=== PATIENT | female | born 1975 | race Caucasian/White ===

== ENCOUNTER 2023-06-10 13:43 | Outpatient (OUT) | payer OTHER, SELFPAY ==
--- NOTE | 2023-06-10 13:47 | MM_ITS ---
Patient: HUNTER MARTINEZ Exam Date: 06/10/2023 : 1975 Gender:F Ordering : DR Ying Romero M.D. Admission #: [id number] Family : Order #: [id number] CLICK HERE TO VIEW EXAM RADIOLOGY REPORT PROCEDURE: MM TOMOSYNTHESIS SCREENING BI COMPARISON: MG MAMM SCREEN 3D KSENIA CAD, 06/09/2021. INDICATIONS: Screening mammogram Z12.31 Calculator Name NCI Breast Cancer Risk Assessment Tool 5 Year Breast Cancer Risk 1.00% Lifetime Breast Cancer Risk 11.90% Personal Breast Cancer No Personal Ovarian Cancer No Treatments None Family Cancers None LOCATION: [facility] BREAST COMPOSITION: Heterogeneously dense,which may obscure small masses. FINDINGS: DIAGNOSTIC CATEGORY 1--NEGATIVE. RIGHT BREAST: No significant suspicious finding. No significant change has occurred. LEFT BREAST: No significant suspicious finding. No significant change has occurred. RECOMMENDATIONS: ROUTINE MAMMOGRAM AND CLINICAL EVALUATION IN 12 MONTHS. PLEASE NOTE: A NORMAL MAMMOGRAM DOES NOT EXCLUDE THE POSSIBILITY OF BREAST CANCER. A CLINICALLY SUSPICIOUS PALPABLE LUMP SHOULD BE BIOPSIED. Dictated by: Jb Ricardo M.D. on 06/11/2023 at 12:38 Approved by: Jb Ricardo M.D. on 06/11/2023 at 12:43
== END 2023-06-10 13:44 | disposition home or self-care (01) ==
LOC: MAMMO 13:43
PROVIDERS: PCP Family Medicine; Visit Provider Family Medicine
DX: Z12.31 Encounter for screening mammogram for malignant neoplasm of breast (principal)
CPT/HCPCS: 77063; 77067

== ENCOUNTER 2023-07-31 09:05 | Outpatient (OUT) | payer OTHER, SELFPAY ==
[2023-07-31 09:43] LABS: Estimated Average Glucose 100 mg/dL; Glycohemoglobin A1C 5.1 % (4.5-6.2)
[2023-07-31 10:47] LABS: Anion Gap 13.9; Carbon Dioxide 26.5 mmol/L (21.0-32.0); Chloride 103 mmol/L (98-107); Glucose 93 mg/dL (74-106); Potassium 4.4 mmol/L (3.5-5.1); Sodium 139 mmol/L (136-145)
[2023-07-31 10:48] LABS: Alanine Aminotransferase 22 U/L (14-59); Albumin Globulin Ratio 1.2; Albumin Level 4.2 g/dL (3.4-5.0); Alkaline Phosphatase 45 U/L (46-116); Aspartate Amino Transferase 11 U/L (15-37); BUN Creatinine Ratio 23.8; Bilirubin Total 0.5 mg/dL (0.2-1.0); Calcium 9.1 mg/dL (8.5-10.1); Cholesterol 189 mg/dL (<=200); Estimated GFR (African America >60 (>=60); Estimated GFR (Non-African Ame >60 (>=60); Globulin 3.4 g/dL; HDL Cholesterol 68 mg/dL (40-60); Total Protein 7.6 g/dL (6.4-8.2); Triglycerides 32 mg/dL (<=150); VLDL CHOLESTEROL 6.4 mg/dL
[2023-07-31 10:49] LABS: Thyroid Stimulating Hormone 0.857 uIU/mL (0.358-3.740)
[2023-07-31 10:50] LABS: Chol HDL Ratio 2.8
[2023-08-01 04:07] LABS: Thyroid Peroxidase (TPO) Ab <9 IU/mL (0-34)
== END 2023-07-31 09:06 | disposition home or self-care (01) ==
LOC: LAB 09:06
PROVIDERS: PCP Family Medicine; Visit Provider General Practice
DX: E66.9 Obesity, unspecified (principal); R53.83 Other fatigue; E03.9 Hypothyroidism, unspecified
CPT/HCPCS: 36415; 80053; 80061; 83036; 84443; 86376

== ENCOUNTER 2024-06-11 20:36 | Outpatient (REF) | payer OTHER, SELFPAY ==
[2024-06-18 15:10] LABS: Age Gdln ACOG Testing Note (.); HPV Aptima Negative (Negative); IGP, Aptima HPV, rfx 16/18,45 Note (.)
== END 2024-06-11 20:37 | disposition home or self-care (01) ==
LOC: LAB 20:36
PROVIDERS: PCP Family Medicine; Visit Provider Physician Assistant
DX: Z01.419 Encounter for gynecological examination (general) (routine) without abnormal findings (principal)
CPT/HCPCS: 87624; 88175

== ENCOUNTER 2025-06-16 19:48 | Outpatient (REF) | payer OTHER, SELFPAY ==
--- OUTSIDE RECORDS SUMMARY | 2025-06-16 19:52 | XMS_ITS | CCD ---
Author Organization [facility] Care Team Providers Care Sheet Fed Printer Name Role Phone CODY, DR DEVIN Matthew Consulting Unavailable PORTIA, DR YING Sherman Primary Care Unavailable SHAIKH REBOLLAR Attending Unavailable SMOOTH, Admitting Unavailable SHAIKH REBOLLAR Consulting Unavailable PORTIA, DR YING Sherman Admitting Unavailable PEARCE, DR YING Sherman Attending Unavailable PEARCE, DR YING Sherman Primary Care Unavailable MIGUEL, DR BEARDEN Consulting Unavailable CODY, DR DEVIN Matthew Consulting Unavailable PORTIA, DR YING Sherman Consulting Unavailable PORTIA, DR YING Sherman Admitting Unavailable PEARCE, DR YING Sherman Attending Unavailable PEARCE, DR YING Sherman Consulting Unavailable PORTIA, DR YING Sherman Primary Care Unavailable SHAKIRA STOKES Attending Unavailable Ying Pearce MD Primary Care Provider Ying Pearce MD Primary Care Provider [phone] Problems Problem Classification Problem Date Documented Da te Episodic/Chronic Other bone disease and musculoskeletal deformities (4 sources) Other specified disorders of bone, shoulder; Translations: [OTHER SPEC DISORDERS BONE SHOULDER] Onset: 09-06-2021 Episodic Other non-traumatic joint disorders (1 source) Pain in right shoulder; Translations: [PAIN IN RIGHT SHOULDER] Onset: 09-26-2021 Episodic Other screening for suspected conditions (not mental disorders or infectious disease) (6 sources) Encounter for screening mammogram for malignant neoplasm of breast; Translations: [Patient encounter status] Onset: 06-09-2021 Episodic Results Test Name Value Interpretation Reference Range Facil ity IGP,APTIMA HPV,AGE GDLNon AGE GDLN ACOG TESTING Note . [facility] Comment on above: TESTS RESULT FLAG UN ITS REF RANGE LAB Clinician Provided Cytology Information Source.............Cervix;Endocervix No. of containers..01 ThinPrep Vial Age Jerri OCHOA Pricilla... 32 FLAG LEGEND: L-Low Normal,H-High Normal,LL-Alert Low,HH-Alert High <-Panic Low,>-Panic High,A-Abnormal,AA-Critical Abnormal Performed at: 01 =G [address] [address] Esthela Dee MD, HPV APTIMA Negative Negative [facility] Comment on above: This nucleic acid am plification test detects fourteen high- risk HPV types (16,18,31,33,35,39,45,51,52,56,58,59,66,68) without differentiation. Performed at: =[address] [id number] Staff Assistant: Esthela Dee MD, Phone: [phone] Performed at: - [address] [id number] Staff Assistant: Esthela Dee MD, Phone: [phone] IGP, APTIMA HPV, RFX 16/18,45 Note . [facility] Comment on above: TESTS RESULT FLAG UN ITS REF RANGE LAB DIAGNOSIS: 02 NEGATIVE FOR INTRAEPITHELIAL LESION OR MALIGNANCY. THIS SPECIMEN WAS RESCREENED PART OF OUR COMMUNITY SERVICE COORDINATOR PROGRAM. Specimen adequacy: 02 Satisfactory for evaluation. Endocervical and/or squamous metaplastic cells (endocervical component) are present. Performed by: 02 Yoni Barrett, [employer] ([facility]) QC reviewed by: 02 Kylah Helton, Supervisory [employer] ([facility]) . 02 Note: Note 02 The Pap smear is a screening test designed to aid in the detection of premalignant and malignant conditions of the uterine cervix. It is not a diagnostic procedure and should not be used as the sole means of detecting cervical cancer. Both false-positive and false-negative reports do occur. Test Methodology: Note 02 This liquid based ThinPrep(R) pap test was screened with the use of an image guided system. HPV Genotype Reflex Note 02 Criteria not met, HPV Genotype not performed. FLAG LEGEND: L-Low Normal,H-High Normal,LL-Alert Low,HH-Alert High <-Panic Low,>-Panic High,A-Abnormal,AA-Critical Abnormal Performed at: [address] [address] Esthela Dee MD, BRUSH-SPATULA CERVIX ENDOCERVIX [facility] XR TSPINE 3 VIEWSon 09-06-20 21 XR TSPINE 3 VIEWS EXAMINATION: XR TSPI NE 3 VIEWS HISTORY: Disorder of bone COMPARISON: No relevant comparison available. FINDINGS: BONES: Normal alignment with no acute fracture or spondylolisthesis. Mild diffuse degenerative spondylosis DISC SPACES: Normal. No significant disc height narrowing, subluxation, or endplate abnormality. PARASPINOUS: Negative. No paraspinous abnormality is seen. OTHER: Negative. IMPRESSION: Degenerative spondylosis Electronically authenticated by: DEVIN ROSS Date: 2021-09-06 19:15 Normal [facility] MG MAMM SCREEN 3D KSENIA CADon 06-09-2021 MG MAMM SCREEN 3D KSENIA CAD Patient: HUNTER CURRY Exam Date: 06/09/2021 : 1975 Gender:F Ordering : DR YING PEARCE M.D. Admission #: [id number] Family : DR MONISHA RIVERA . Order #: [id number] CLICK HERE TO VIEW EXAM RADIOLOGY REPORT PROCEDURE: MAMMOGRAM SCREENING 3D BILATERAL CAD COMPARISON: None. INDICATIONS: Screening mammography Calculator Name NCI Breast Cancer Risk Assessment Tool 5 Year Breast Cancer Risk 0.90% Lifetime Breast Cancer Risk 12.10% Personal Breast Cancer No Personal Ovarian Cancer No Treatments None Family Cancers None LOCATION: [facility] BREAST COMPOSITION: Heterogeneously dense,which may obscure small masses. FINDINGS: DIAGNOSTIC CATEGORY 1--NEGATIVE ASSESSMENT. Scattered benign-appearing nodules are present. Scattered benign-appearing calcifications are present. Scattered benign-appearing lymph nodes are present. RIGHT BREAST: No significant suspicious finding. LEFT BREAST: No significant suspicious finding. RECOMMENDATIONS: ROUTINE MAMMOGRAM AND CLINICAL EVALUATION IN 12 MONTHS. PLEASE NOTE: A NORMAL MAMMOGRAM DOES NOT EXCLUDE THE POSSIBILITY OF BREAST CANCER. A CLINICALLY SUSPICIOUS PALPABLE LUMP SHOULD BE BIOPSIED. Dictated by: Devin Ross MD on 06/09/2021 at 10:14 Approved by: Devin Ross MD on 06/09/2021 at 10:19 Normal [facility] LIPID PROFILEon 02-17-2021 CHOL-HDL RATIO NORM SEE BELOW Normal [facility] Comment on above: Result Comment: 3.3 - 4.4 LOW RISK 4.4 - 7.1 AVERAGE RISK 7.1 - 11.0 MODERATE RISK >11.0 HIGH RISK Performed By: #### L IPID #### [facility] [address] [place], [place] [address] Santiago Camryn Cholesterol [Mass/Vol] 182 mg/dL Normal <=200 [facility] Comment on above: Performed By: #### L IPID #### [facility] [address] [place], [place] [address] Santiago Camryn Cholesterol in HDL [Mass/Vol] 67 mg/dL Normal [facility] Comment on above: Performed By: #### L IPID #### [facility] [address] [place] [phone] Santiago Camryn Cholesterol in LDL [Mass/Vol] 108.4 mg/dL Normal [facility] Comment on above: Performed By: #### L IPID #### [facility] [address] [place] [phone] Santiago Camryn Cholesterol.total/ Cholesterol in HDL [Mass ratio] 2.7 {ratio} Normal [facility] Comment on above: Performed By: #### L IPID #### [facility] [address] [place] [address] Santiago Camryn HDL NORMAL > or = 60 mg/dl - LO W CARDIOVASCULAR RISK <40 mg/dl - HIGH CARDIOVASCULAR RISK Normal [facility] Comment on above: Performed By: #### L IPID #### [facility] [address] [place] [phone] Santiago Camryn LDL CALC NORMAL SEE BELOW Normal [facility] Comment on above: Result Comment: <100 mg/dl OPTIMAL 100 - 129 mg/dl NEAR OR ABOVE OPTIMAL 130 - 159 mg/dl BORDERLINE HIGH 160 - 189 mg/dl HIGH >190 mg/dl VERY HIGH Performed By: #### L IPID #### [facility] [address] [place] [phone] Santiago Camryn Triglyceride [Mass/Vol] 33 mg/dL Normal <=150 [facility] Comment on above: Performed By: #### L IPID #### [facility] [address] [place] [address] Santiago Camryn VLDL CALC 6.6 mg/dL Normal [facility] Comment on above: Performed By: #### L IPID #### [facility] [address] [place] [address] Santiago Camryn Vital Signs Date Time Vital Sign Value Performing Clinician Bettina nichols 06-16-2025 16:02-0400 Body mass index (BMI) [Ratio] 32.36 kg/m2 Shakira SRINIVASAN Work Phone: [facility] 06-16-2025 16:02-0400 Body weight 85.5 kg Shakira SRINIVASAN Work Phone: [facility] 06-16-2025 16:02-0400 Diastolic blood pressure 86 mm[Hg] Shakira SRINIVASAN Work Phone: [facility] 06-16-2025 16:02-0400 Systolic blood pressure 140 mm[Hg] Shakira SRINIVASAN Work Phone: [facility] 06-16-2024 15:29-0400 Body height 162.56 cm [facility] 06-16-2024 15:29-0400 Body mass index (BMI) [Ratio] 29 kg/m2 [facility] 06-16-2024 15:29-0400 Body weight 76.65 kg [facility] 06-16-2024 15:29-0400 Diastolic blood pressure 73 mm[Hg] [facility] 06-16-2024 15:29-0400 Heart rate 84 /min [facility] 06-16-2024 15:29-0400 Systolic blood pressure 108 mm[Hg] [facility] Encounters Encounter Date Encounter Type Care Provider Facility Start: 06-16-2025 End: 06-16-2025 Patient encounter procedure Shakira SRINIVASAN Work Phone: [facility] Start: 06-16-2025 End: 06-16-2025 Periodic preventive med est patient 40-64yrs Shakira SRINIVASAN Work Phone: [facility] David ELY Comment on above: Well woman exam with routine gynecological exam; Encounter for screening mammogram for malignant neoplasm of breast Start: 06-16-2025 End: 06-16-2025 Bamboo flowsheet Shakira SRINIVASAN Work Phone: [facility] Start: 06-16-2025 End: 06-16-2025 Bamboo flowsheet Shakira SRINIVASAN Work Phone: [facility] Start: 06-16-2024 End: 06-16-2024 ambulatory [facility] Work Phone: Start: 06-16-2024 End: 06-16-2024 Patient encounter procedure [facility] Work Phone: Start: 06-11-2024 End: 06-11-2024 ambulatory SHAKIRA STOKES Not Available Start: 06-11-2024 End: 06-18-2024 [facility] Result Encounter Shakira SRINIVASAN Work Phone: [facility] Unsolicited Start: 06-11-2024 End: 06-18-2024 [facility] Result Encounter Shakira SRINIVASAN Work Phone: [facility] Unsolicited Start: 09-06-2021 End: 09-07-[address] DEVIN ROSS Facility:[facility] Start: 06-09-2021 End: 06-10-[address] YING PEARCE Facility:[facility] Start: 02-23-2021 Encounter for genera l adult medical examination without abnormal findings DR YING PEARCE [facility] Start: 02-17-2021 End: 02-18-[address] YING PEARCE Facility:[facility] Start: 02-17-2021 End: 02-18-2021 Encounter for general adult medical examination without abnormal findings DR YING PEARCE Facility:[facility] Procedures Date Procedure Procedure Detail Performing Clinician Start: 06-11-2024 IGP,APTIMA HPV,AGE GDLN Shakira SRINIVASAN Work Phone: Start: 06-11-2024 Microscopic observat ion [Identifier] in Cervix by Cyto stain Shakira SRINIVASAN Work Phone: Plan of Treatment Date Care Activity Detail Author Start: 06-11-2027 Screening for malignant neoplasm of cervix [facility] Start: 06-20-2026 End: 06-20-2026 Patient encounter procedure 06/20/2026 3:00 PM EDT Procedure Visit [facility] [address] [place] [address] Shakira Stokes PA [address] [place] [address] [facility] Start: 06-28-2025 Influenza vaccination Influenza Vacc ine (#1) [facility] Start: 06-16-2025 End: 06-16-2025 Patient encounter procedure [facility] OB Comment on above: Arrived Start: 06-16-2025 End: 08-16-2026 MG Breast - bilateral Screening Bilateral screening mammogram Imaging Routine Encounter for screening mammogram for malignant neoplasm of breast Expected: 06/16/2025 (Approximate), Expires: 08/16/2026 [facility] Work Phone: Comment on above: Expected: 06/16/2025 (Approximate), Expires: 08/16/2026 Start: 06-28-2024 Influenza vaccination Influenza Vacc ine (#1) [facility] Start: 2017 Screening for malignant neoplasm of breast Mammogram [facility] Start: 2007 Screening for malignant neoplasm of cervix [facility] Start: 1998 Screening for malignant neoplasm of cervix Pap Smear [facility] Start: 1975 Screening for malignant neoplasm of colon [facility] THIN PREP TIS PAP AN D HR HPV DNA THIN PREP TIS PAP AND HR HPV DNA Pathology and Cytology Routine Well woman exam with routine gynecological exam Ordered: 06/16/[address] [facility] Comment on above: Ordered: 06/16/2025 Immunizations Immunization Date Immunization Notes Care Provider Cholo fry 10-03-2022 influenza virus vacc ine, unspecified formulation [facility] 06-23-2021 COVID-19 mRNA, Comir gerald (Pfizer) [facility] 06-02-2021 COVID-19 mRNA, Comir gerald (Pfizer) [facility] 07-29-2020 influenza virus vacc ine, unspecified formulation [facility] 2017 tetanus and diphther ia toxoids, adsorbed, preservative free, for adult use (5 Lf of tetanus toxoid and 2 Lf of diphtheria toxoid) [facility] 08-31-2016 tetanus and diphther ia toxoids, adsorbed, preservative free, for adult use (5 Lf of tetanus toxoid and 2 Lf of diphtheria toxoid) [facility] 10-26-2015 influenza virus vacc ine, unspecified formulation [facility] Payers Date Payer Category Payer Private Health Insurance [employer] [id number] 2020 Unknown [facility] [id number] 2020-Present [phone] [address] [place] [address] [id number] 1975 Unknown [id number] 1975 Unknown [id number] 1975 Unknown [id number] 1975 Unknown [id number] 1957 Unknown [id number] Social History Date Type Detail Facility Tobacco smoking stat [facility] Unknown if ever smoked [facility] Work Phone: Start: 1975 Sex Assigned At Female [facility] Tobacco smoking stat [facility] Tobacco smoking consumption unknown [facility] Start: 04-08-2024 Gender identity Identifies as female gender (finding) [facility] Start: 04-08-2024 Sexual orientation Heterosexual (finding) [facility] History of Present illness Narrative 06-16-2025 CRAIG Crouch - 06/16/2025 4:00 PM EDT Note Date & Type Note Facility 06-16-2025 History of Presen t illness Narrative Reason for Appointment: Patient ID: Hunter Curry is a 49 y.o. female who presents for Well Women Visit Patient presents today for Annual Exam. MEDICATIONS No current outpatient medications ALLERGIES No Known Allergies PROBLEMS Active Ambulatory Problems Diagnosis Date Noted No Active Ambulatory Problems Resolved Ambulatory Problems Diagnosis Date Noted No Resolved Ambulatory Problems No Additional Past Medical History HISTORY PAST MEDICAL HISTORY SOCIAL HISTORY History reviewed. No pertinent past medical history. Social History Tobacco Use Smoking status: Not on file Smokeless tobacco: Not on file Substance Use Topics Alcohol use: Not on file Drug use: Not on file FAMILY HISTORY No family history on file. SURGICAL HISTORY Past Surgical History: Procedure Laterality Date CERVICAL BIOPSY W/ LOOP ELECTRODE EXCISION SECTION, LOW TRANSVERSE DILATION AND CURETTAGE OF UTERUS REVIEW OF SYSTEMS Review of Systems: Review of Systems All other systems reviewed and are negative. OBJECTIVE Objective: Physical Exam Constitutional: Appearance: Normal appearance. She is well-developed. Genitourinary: Vulva normal. Right Adnexa: not tender and no mass present. Left Adnexa: not tender and no mass present. No cervical discharge. Breasts: Breasts are soft. Right: Normal. Left: Normal. HENT: Head: Normocephalic. Nose: Nose normal. Mouth/Throat: Mouth: Mucous membranes are moist. Cardiovascular: Rate and Rhythm: Normal rate and regular rhythm. Pulmonary: Effort: Pulmonary effort is normal. Breath sounds: Normal breath sounds. Abdominal: General: Bowel sounds are normal. There is no distension. Palpations: Abdomen is soft. Tenderness: There is no abdominal tenderness. There is no guarding or rebound. Musculoskeletal: General: No swelling. Normal range of motion. Cervical back: Normal range of motion. Right lower leg: No edema. Left lower leg: No edema. Neurological: General: No focal deficit present. Mental Status: She is alert and oriented to person, place, and time. Skin: General: Skin is warm and dry. Psychiatric: Mood and Affect: Mood normal. Behavior: Behavior normal. Vitals and nursing note reviewed. Exam conducted with a logging crew supervisor present. Vitals: Estimated body mass index is 32.36 kg/m as calculated from the following: Height as of 06/11/24: 5' 4 . Weight as of this encounter: 188 lb 8 oz. BP: 140/86 No LMP recorded. Patient is premenopausal. ASSESSMENT & PLAN ICD-10-CM 1. Well woman exam with routine gynecological exam Z01.419 THIN PREP TIS PAP AND HR HPV DNA 2. Encounter for screening mammogram for malignant neoplasm of breast Z12.31 Bilateral screening mammogram Bilateral screening mammogram Annual: Patient presents today for an annual exam. Patient states she is doing well and has no complaints. Pap was obtained without difficulty and patient given mammogram order to have scheduled/obtained. Patient does have hot flashes, sleepless nights, night sweats, weight gain . Discussed medication with patient. Orders Placed This Encounter Procedures Bilateral screening mammogram Follow Up: Patient is to return in one year for annual unless needed otherwise. Documented by Hunter Alcantara LPN on behalf of: CRAIG Crouch documented in this encounter [facility] Dimple Dough Clinical Note 09-06-2021 Note Date & Type Note Facility 09-06-2021 Note PROCEDURE: XR SHOULD ER RT 2V or > COMPARISON: None. HISTORY: Pain of right shoulder joint FINDINGS: BONES:No fracture, acute abnormality, or significant arthropathy. SOFT TISSUES:Negative. No visible soft tissue swelling. EFFUSION:None visible. OTHER: Negative. IMPRESSION: No acute abnormality Electronically authenticated by: DEVIN ROSS Date: 2021-09-06 19:19 [facility] Evaluation note Note Date & Type Note Facility Evaluation note No assessment information [facility] Work Phone: Evaluation note Note Date & Type Note Facility Evaluation note Diagnosis Well woman exam with routine gynecological exam Routine gynecological examination Encounter for screening mammogram for malignant neoplasm of breast documented in this encounter [facility] Summary Purpose Family History Relationship Condition Age at Onset Recorded Date/T humberto father Hypertension Unknown mother Hypertension Unknown Advance Directives Advance Directive Response Recorded Date/ Time Advance Directives No June 16, 2024 3:22pm Chief Complaint and Reason for Visit Chief Complaint wellness Additional Source Comments INFORMATION SOURCE (unrecogn ized section and content) DATE CREATED AUTHOR 09/28/2021 [facility] DATE CREATED AUTHOR AUTHOR'S ORGANIZ ATION 06/13/2024 [facility] dicfl Specialists [facility] Care Teams (unrecognized sec tion and content) Team Status: Active Member Role Status Dates Ying Pearce MD Primary Care Provider Active Team Status: Inactive Member Role Status Dates Ying Pearce MD Primary Care Provide r, Attending Provider Active Start: June 16, 2024 End: June 16, 2024 Sheet Fed Printer Relationship Specialty Start Date End Date Ying Pearce MD [address] [place] [address] PCP - General Family Medicine 06/11/24 Sheet Fed Printer Relationship Specialty Start Date End Date Ying Pearce MD [address] [place] [id number] PCP - General Family Medicine 06/11/24 Sheet Fed Printer Relationship Specialty Start Date End Date Ying Pearce MD [address] [place] [facility] [place] [address] PCP - General Family Medicine 06/11/24 Goals (unrecognized section and content) Goals may be documented in a n alternate section Reason for Visit (unrecogniz ed section and content) Reason Comments Well Women Visit FOR RECORDS PERTAINING TO PATIENTS WHO ARE OR HAVE BEEN ENROLLED IN A CHEMICAL DEPENDENCY/SUBSTANCEABUSE PROGRAM, SOME INFORMATION MAY BE OMITTED. This clinical summary was aggregated from multiple sources. Caution should be exercised in using it in the provision of clinical care. This summary normalizes information from multiple sources, and as a consequence, information in this document may materially change the coding, format and clinical context of patient data. In addition, data may be omitted in some cases. CLINICAL DECISIONS SHOULD BE BASED ON THE PRIMARY CLINICAL RECORDS. [employer] [facility]. provides no warranty or guarantee of the accuracy or completeness of information in this document.
[2025-06-21 11:09] LABS: Age Gdln ACOG Testing Note (.); IGP, Aptima HPV, rfx 16/18,45 Note (.)
== END 2025-06-16 19:49 | disposition home or self-care (01) ==
LOC: LAB 19:48
PROVIDERS: PCP Family Medicine; Visit Provider Physician Assistant
DX: Z01.419 Encounter for gynecological examination (general) (routine) without abnormal findings (principal)
CPT/HCPCS: 87624; 88175

== ENCOUNTER 2025-06-18 07:53 | Outpatient (OUT) | payer OTHER, SELFPAY ==
--- NOTE | 2025-06-18 08:21 | MM_ITS ---
Patient Name: HUNTER MARTINEZ MR#: [id number] : 1975 Exam Date: 06/18/2025 Ordering Doctor: DR ESVIN RUTHERFORD . RADIOLOGY REPORT PROCEDURE: MM TOMOSYNTHESIS SCREENING BI COMPARISON: MM TOMOSYNTHESIS SCREENING BI, 06/10/2023. MG MAMM SCREEN 3D KSENIA CAD, 06/09/2021. INDICATIONS: Screening Calculator Name NCI Breast Cancer Risk Assessment Tool 5 Year Breast Cancer Risk 1.10% Lifetime Breast Cancer Risk 11.60% Personal Breast Cancer No Personal Ovarian Cancer No Treatments None Family Cancers None LOCATION: [facility] BREAST COMPOSITION: The breasts are heterogeneously dense, which may obscure small masses. FINDINGS: DIAGNOSTIC CATEGORY 1--NEGATIVE. RIGHT BREAST: No significant suspicious finding. LEFT BREAST: No significant suspicious finding. RECOMMENDATIONS: ROUTINE MAMMOGRAM AND CLINICAL EVALUATION IN 12 MONTHS. Dictated by: David Machado MD on 06/18/2025 at 10:15 Approved by: David Machado MD on 06/18/2025 at 10:21
== END 2025-06-18 07:54 | disposition home or self-care (01) ==
LOC: MAMMO 07:54
PROVIDERS: PCP Family Medicine; Visit Provider Obstetrics & Gynecology
DX: Z12.31 Encounter for screening mammogram for malignant neoplasm of breast (principal)
CPT/HCPCS: 77063; 77067